=== PATIENT | male | born 1975 | race Caucasian/White ===

== ENCOUNTER 2019-09-19 09:52 | Emergency (ER) | payer BC, SELFPAY ==
[2019-09-19 10:02] VITALS: BP 134/93; PULSE 91; RESP 16; TEMP 37; O2SAT 99
--- NOTE | 2019-09-19 10:32 | ED.GENADULT ---
HPI - General Adult General Chief complaint: Upper Respiratory Infection Stated complaint: Body aches/fatigue/chest congestion Time Seen by Provider: 09/19/19 10:32 Source: patient and RN notes reviewed Mode of arrival: ambulatory Limitations: no limitations History of Present Illness HPI narrative: 44-year-old male presents with complaints of upper respiratory infection symptoms, body aches, cough, and fatigue for the past 4 days. Dayquil and Zinc without relief. Dry cough with intermittent productive cough (brown phlegm). Rhinorrhea and nasal congestion. No exacerbating factors. No high fevers or chills. No nausea and one episode of vomiting this morning @ 01:15 without blood or coffee ground contents. No abdominal cramping or abdominal pain. Denies chest pain, dyspnea, coughing up blood, difficulty swallowing, jaw pain, dental pain, facial pain, foreign body sensation, and rash. Remains active. Some parts of this dictation were generated by voice recognition software and may contain typographical and/or grammatical inaccuracies. Related Data Home Medications Medication Instructions Recorded Confirmed atorvastatin 40 mg PO HS 09/19/19 09/19/19 [id number] cap PO 09/19/19 [Vicks DayQuil Cold-Flu Relief] Allergies Allergy/AdvReac Type Severity Reaction Status Date / Time cefaclor Allergy Unknown Skin Verified 07/21/17 21:20 Reaction Review of Systems Review of Systems: Narrative: CONSTITUTIONAL: Complains of fatigue. Denies fever, chills, sweats. EYES: Denies visual changes, redness, discharge. ENT: Complains of rhinorrhea, congestion. Denies sore throat, otalgia. CARDIOVASCULAR: Denies chest pain, palpitations, edema. RESPIRATORY: Denies dyspnea, wheezing. Complains of dry cough, intermittent productive. GASTROINTESTINAL: Denies abdominal pain,diarrhea. Complains of nausea, vomiting. GENITOURINARY: Denies dysuria, hematuria, abnormal discharge. SKIN: Denies rash or itching. MUSCULOSKELETAL: Denies acute back pain, joint pain. Complains of myalgia. NEUROLOGIC: Denies numbness or focal weakness. PSYCHIATRIC: Denies anxiety or depression. All systems reviewed & are unremarkable except as noted in HPI and below. [facility] Past Medical History Medical History Hypercholesteremia Hypertension Surgical History Surgical History History of arthroscopic knee surgery Left knee Family History Family History Father Diabetes mellitus Hypertension Malignant neoplasm of prostate Grandparent Family history of cardiovascular disease Family history of atrial fibrillation Social History Social History Smoking status: Never smoker Second hand tobacco smoke exposure: No Alcohol intake: current Alcohol use details: Occasionally Substance use: never Living arrangements: with family Occupation/Education: occupation Gender identity (if verbalized by the patient): Male Comments At time of signature, agree with nurse past medical, surgical, social, and family history. There is no relevant family history pertinent to the presenting complaint. Exam Narrative: Exam Narrative: GENERAL: This is a well-nourished, well-developed patient, in no apparent distress. Speaks in full sentences and ambulates with steady gait without dyspnea. HEAD: normocephalic, atraumatic. EYES: PERRL. Sclera clear/white. Vision is grossly intact. EARS: External ears normal, auditory canals clear and without drainage, TMs normal without perforation. Hearing grossly intact. NOSE: External nose normal with no obvious nasal discharge, nares with moderate redness and enlarged turbinates, clear rhinorrhea. THROAT: Mucous membranes moist, posterior pharynx with PND, mild erythem
== END 2019-09-19 10:50 | disposition home or self-care (01) ==
PROVIDERS: Emergency Provider Nurse Practitioner Family; PCP Family Medicine
DX: B34.9 Viral infection, unspecified (principal); E78.00 Pure hypercholesterolemia, unspecified; I10 Essential (primary) hypertension
CPT/HCPCS: 99203; G0463

== ENCOUNTER 2024-07-26 00:32 | Day surgery (SDC) | payer OTHER, SELFPAY ==
[2024-07-08 12:32] VITALS: BMI 29.9
[2024-07-26 06:24] VITALS: BP 130/76; PULSE 98; RESP 18; TEMP 36.1; O2SAT 99
[2024-07-26] MEDS: LACTATED RINGERS 1,000 ML 150 ML IV CONT (06:31)
--- NOTE | 2024-07-26 07:22 | P.PNAN_ITS ---
Anes - Initial Pre Proc Eval Procedure: Operation Date: 07/26/24 07:30 Proposed Procedures p Esophagogastroduodenoscopy&Screen Colon - Ronnie Waterman MD Date/Time: 07/26/24 07:23 Surgeon: Ronnie Waterman MD Pre Op Diagnosis: GERD, Neoplasm screening Patient Data Age: 49 Gender: M Height: 1.83 m Weight: 101.8 kg Last Vital Signs Temp 97 F L 07/26/24 06:24 Pulse 98 07/26/24 06:24 Resp 18 07/26/24 06:24 BP 130/76 07/26/24 06:24 Pulse Ox 99 07/26/24 06:24 O2 Del Method Room Air 07/26/24 06:24 Allergies Allergy/AdvReac Type Severity Reaction Status Date / Time cefaclor Allergy Unknown Skin Verified 07/26/24 06:18 Reaction Home Medications ?Medication ?Instructions ?Recorded ?Confirmed ?Type hydrochlorothiazide 12.5 mg tablet 12.5 mg PO DAILY #90 tabs 01/30/24 07/26/24 Rx omeprazole 20 mg capsule,delayed 20 mg PO DAILY 03/25/24 07/26/24 History release omeprazole magnesium 20 mg 20 mg PO DAILY 07/08/24 07/08/24 History tablet,delayed release (Prilosec OTC) amlodipine 10 mg tablet 10 mg PO DAILY #90 tabs 07/09/24 07/26/24 Rx atorvastatin 80 mg tablet 80 mg PO QHS #90 tabs 07/09/24 07/26/24 Rx ezetimibe 10 mg tablet (Zetia) 10 mg PO DAILY #90 tabs 07/09/24 07/26/24 Rx fenofibrate 160 mg tablet See Rx Instructions .Route 07/09/24 07/26/24 Rx .COMPLEX #90 tabs lisinopril 40 mg tablet 40 mg PO DAILY #90 tabs 07/09/24 07/26/24 Rx Patient hx anesthesia problems: none Family hx anesthesia problems: none Results Review: All pre-operative results and documents have been reviewed as part of the pre- operative evaluation. [facility] Past Medical History Medical History Hypercholesteremia Hypertension Surgical History Surgical History History of arthroscopic knee surgery Left knee Family History Family History Father Diabetes mellitus Hypertension Malignant neoplasm of prostate Grandparent Family history of cardiovascular disease Family history of atrial fibrillation Social History Social History Smoking status: Never smoker Second hand tobacco smoke exposure: No Alcohol intake: current Drinks per week: 35 Alcohol use details: Occasionally Substance use: never Substance use type: does not use Lack of Transportation: No Lack of Food: Never True Current Housing: I Have Housing Concerned About Future Housing: No Difficulty Paying Gas/Electric Bills: No Difficulty Paying for Meds: No Currently Unemployed: No Education: Master's Degree or Higher Difficulty w/ Childcare or Family Care: No Living arrangements: with family Occupation/Education: occupation Gender identity (if verbalized by the patient): Male Spiritual care concerns: No Anes - Eval Final PreProcedure Day of Procedure 07/26/24 07:23 Patient weight: normal Heart: regular rate and rhythm Lungs: clear to auscultation Airway: Mallampati scale class II Neurological: alert and oriented Last oral intake: >/= 8 hours ASA classification: II Emergent: no Anesthetic plan: proceed Anesthesia type and monitoring: general GIVS and standard monitoring Results Review: All pre-operative results and documents have been reviewed as part of the pre- operative evaluation. Informed Consent: The patient's anesthetic plan and its attendant risks and benefits were discussed with the patient/family/POA. Questions were solicited and answers provided to the satisfaction of the patient/family/POA.
--- NOTE | 2024-07-26 07:42 | SUR.PREOP ---
0730: PT AND SPOUSE NOTIFIED DR PAZ IS RUNNING 15 MINUTES LATE DUE TO THE WEATHER AND WILL PROCEED WITH PT PROCEDURE UPON HIS ARRIVAL. PT STATES UNDERSTANDING AND NO CONCERNS.
--- NOTE | 2024-07-26 07:59 | PM.HPGS ---
History of Present Illness History of Present Illness Consent: Risks, benefits, and alternatives have been discussed and questions answered. Patient agrees to proceed with procedure. Chief complaint: GERD, Neoplasm screening Narrative: Samuel Andersen is a 49 year old male here for first egd and colonoscopy, h/o GERD on ppi Review of Systems Review of Systems: All systems reviewed & are unremarkable except as noted in HPI and below PMFSH Past Medical History Medical History Hypercholesteremia Hypertension Surgical History Surgical History History of arthroscopic knee surgery Left knee Family History Family History Father Diabetes mellitus Hypertension Malignant neoplasm of prostate Grandparent Family history of cardiovascular disease Family history of atrial fibrillation Social History Social History Smoking status: Never smoker Second hand tobacco smoke exposure: No Alcohol intake: current Drinks per week: 35 Alcohol use details: Occasionally Substance use: never Substance use type: does not use Lack of Transportation: No Lack of Food: Never True Current Housing: I Have Housing Concerned About Future Housing: No Difficulty Paying Gas/Electric Bills: No Difficulty Paying for Meds: No Currently Unemployed: No Education: Master's Degree or Higher Difficulty w/ Childcare or Family Care: No Living arrangements: with family Occupation/Education: occupation Gender identity (if verbalized by the patient): Male Spiritual care concerns: No Meds Home Medications and Allergies Home Medications ?Medication ?Instructions ?Recorded ?Confirmed ?Type hydrochlorothiazide 12.5 mg tablet 12.5 mg PO DAILY #90 tabs 01/30/24 07/26/24 Rx omeprazole 20 mg capsule,delayed 20 mg PO DAILY 03/25/24 07/26/24 History release omeprazole magnesium 20 mg 20 mg PO DAILY 07/08/24 07/08/24 History tablet,delayed release (Prilosec OTC) amlodipine 10 mg tablet 10 mg PO DAILY #90 tabs 07/09/24 07/26/24 Rx atorvastatin 80 mg tablet 80 mg PO QHS #90 tabs 07/09/24 07/26/24 Rx ezetimibe 10 mg tablet (Zetia) 10 mg PO DAILY #90 tabs 07/09/24 07/26/24 Rx fenofibrate 160 mg tablet See Rx Instructions .Route 07/09/24 07/26/24 Rx .COMPLEX #90 tabs lisinopril 40 mg tablet 40 mg PO DAILY #90 tabs 07/09/24 07/26/24 Rx Allergies Allergy/AdvReac Type Severity Reaction Status Date / Time cefaclor Allergy Unknown Skin Verified 07/26/24 06:18 Reaction Vital Signs Vital Signs - 24 hr 07/26/24 06:24 Temperature 97 F L Pulse Rate 98 Respiratory Rate 18 Blood Pressure 130/76 Pulse Oximetry 99 Oxygen Delivery Room Air Exam Const: General: comfortable and no acute distress HENMT: Face/Nose/Sinus: Normal nares present Eyes: General: appearance normal, both eyes and all related structures Neck: Neck: no JVD Resp: Auscultation: clear to auscultation bilaterally Cardio: Rate: regular rate Rhythm: regular rhythm GI: Inspection: non-distended GI Palp: Yes Soft to palpation Skin: General skin exam: normal color Neuro: General: gait normal Speech: normal speech Extrem: General: normal to inspection Psych: Mental Status: mental status grossly normal Assessment and Plan Assessment and plan (1) Chronic GERD: Code(s): K21.9 - Gastro-esophageal reflux disease without esophagitis Status: Acute Assessment and Plan: egd (2) Screening for colon cancer: Code(s): Z12.11 - Encounter for screening for malignant neoplasm of colon Status: Acute Assessment and Plan: colonoscopy
--- NOTE | 2024-07-26 08:07 | SUR.OPER ---
EGD ended at 801, colon began at 805
[2024-07-26 08:14] VITALS: BP 104/72; PULSE 78; RESP 24; O2SAT 98
--- NOTE | 2024-07-26 08:19 | SUR.OPER ---
Notified Dr. Guerra only 1 of 2 sigmoid colon polyps retrieved.
[2024-07-26 08:24] VITALS: BP 117/68; PULSE 78; RESP 22; O2SAT 97
[2024-07-26 08:34] VITALS: BP 114/69; PULSE 79; RESP 21; O2SAT 99
== END 2024-07-26 08:48 | disposition home or self-care (01) ==
PROVIDERS: PCP Internal Medicine; Referring Provider Clinical Nurse Specialist; Visit Provider Internal Medicine Gastroenterology
PROC: 0DJ08ZZ Inspection of Upper Intestinal Tract, Via Natural or Artificial Opening Endoscopic (ICD-10-PCS; CPT 45378; principal; 2024-07-26 07:30)
DX: Z12.11 Encounter for screening for malignant neoplasm of colon (principal); K63.5 Polyp of colon; K21.9 Gastro-esophageal reflux disease without esophagitis; I10 Essential (primary) hypertension; E78.00 Pure hypercholesterolemia, unspecified; Z98.890 Other specified postprocedural states; Z80.42 Family history of malignant neoplasm of prostate; Z82.49 Family history of ischemic heart disease and other diseases of the circulatory system
CPT/HCPCS: 45385; 43239; 88305; J2704; J7120